=== PATIENT | female | born 1950 | race Caucasian/White ===

== ENCOUNTER → 2018-04-17 | Outpatient (CLI) | payer MEDICARE, OTHER ==
[~2018-04-17] MED LIST: AMOXICILLIN875 MG PO; BYSTOLIC2.5 MG PO; METFORMIN HCL500 MG PO; MULTI VITAMIN1 EACH PO
== END ==
LOC: M.RAD 07:28
DX: Z12.31 Encounter for screening mammogram for malignant neoplasm of breast (principal)

== ENCOUNTER → 2019-05-21 | Outpatient (CLI) | payer MEDICARE, OTHER | LOC: M.RAD 05-16 09:30 | DX: Z12.31 Encounter for screening mammogram for malignant neoplasm of breast (principal) ==

== ENCOUNTER → 2019-10-29 | Outpatient (CLI) | payer MEDICARE, OTHER | LOC: M.ULTRA 08:55 | DX: D73.89 Other diseases of spleen (principal); K76.0 Fatty (change of) liver, not elsewhere classified; R94.5 Abnormal results of liver function studies ==

== ENCOUNTER → 2020-05-26 | Outpatient (CLI) | payer MEDICARE, OTHER | LOC: M.RAD 08:53 | PROVIDERS: ATTEND Family Medicine | DX: Z12.31 Encounter for screening mammogram for malignant neoplasm of breast (principal) ==

== ENCOUNTER → 2021-06-24 | Outpatient (CLI) | payer MEDICARE | LOC: M.RAD 06-16 09:30 | PROVIDERS: ATTEND Family Medicine | DX: Z12.31 Encounter for screening mammogram for malignant neoplasm of breast (principal) ==